=== PATIENT | male | born 1995 ===

== ENCOUNTER 2023-05-21 07:18 | Outpatient (CLI) | payer OTHER ==
--- NOTE | 2023-05-21 10:54 | MRI Report ---
PROCEDURE: LUMBAR SPINE WO INDICATIONS: DORSALGIA TECHNIQUE: Noncontrast sagittal T1 spin echo and T2 fast echo, sagittal STIR, axial T1 and T2 fast spin echo thr ough the lumbar spine. In cases with scoliosis, additional coronal T2 fast spin echo may be performe d. COMPARISON: None. FINDINGS: Image quality: Excellent. Alignment and Curvature: There is normal bony alignment. Bone Marrow: Marrow is of normal overall signal. No acute vertebral body compression fractures. Spinal Cord: Conus medullaris terminates at the T12-L1 level. Visualized cord demonstrates normal s ignal and size. Paraspinous Soft Tissues: No paravertebral masses. This patient has transitional anatomy. For the purposes of this examination, the level with last visu alized disc space considered to be L5-S1. By this imaging scheme, normal ribs can be seen at T12. L5 level and transitional and partially sacralized. T12-L1: Normal in appearance. L1-L2: Normal in appearance. L2-L3: Normal in appearance. L3-L4: The disc height and disc signal are well preserved. Mild to moderate disc bulge is seen. The re is a mild central disc protrusion. Mild facet hypertrophy is seen. There is mild to moderate left -sided and mild right-sided neuroforaminal narrowing. Minimal central canal narrowing is seen. L4-L5: The disc height and disc signal are well preserved. Mild to moderate disc bulge is seen, wit h a superimposed central disc protrusion. Mild to moderate facet hypertrophy is seen. There is modera te to severe left-sided neuroforaminal narrowing. At least moderate right-sided neuroforaminal narro wing can be seen. Compression is seen upon the exiting nerve roots. Minimal central canal narrowing is seen. L5-S1: A transitional, rudimentary disc can be seen. No significant neural foraminal or central ca nal narrowing can be seen. IMPRESSION: Premature lower lumbar spine degenerative changes are seen, which are worst at the L4-L5 level. 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 Reviewed by: Be Spring MD on 05/21/2023 9:52 AM ORESTES Approved by: Be Spring MD on 05/21/2023 9:52 AM AKNAIDA Station ID: [id number]
== END 2023-05-21 07:19 | disposition home or self-care (01) ==
LOC: DI 07:18
PROVIDERS: ATTEND Student in an Organized Health Care Education/Training Program
DX: M51.16 Intervertebral disc disorders with radiculopathy, lumbar region (principal); M48.061 Spinal stenosis, lumbar region without neurogenic claudication; M47.26 Other spondylosis with radiculopathy, lumbar region